=== PATIENT | male | born 1960 ===

== ENCOUNTER 2017-02-18 13:01 | Emergency (ER) | payer BC ==
[2017-02-18 13:08] VITALS: BP 161/93; PULSE 67; RESP 16; TEMP 98.2; O2SAT 97
[2017-02-18] MEDS ORDERED: Naloxone 0.4 mg/ml Inj (Adult) ONE (13:42)
--- NOTE | 2017-02-18 13:48 | ED PDOC ---
HPI: General Adult Time Seen by Provider: 02/18/17 13:21 Chief Complaint (Nursing): Abdominal Pain Chief Complaint (Provider): Rectum pain History Per: Patient History/Exam Limitations: no limitations Onset/Duration Of Symptoms: Hrs Current Symptoms Are (Timing): Still Present Additional Complaint(s): 56 y/o male who presents to the emergency department with a complaint of pain and burning of the rectum region since this morning. Reports taking 1 percocet tab around 8am this morning for the relief of symptoms. Denies having any new foods or drinks, bleeding of the rectum area, burning while urinating, shortness of breath, abdominal, back, testicular, or chest pain. Last bowel movement was at 6am. Stats no BM after 6am. Past Medical History Reviewed: Historical Data, Nursing Documentation, Vital Signs Vital Signs: Last Vital Signs Temp 98.2 F 02/18/17 13:06 Pulse 67 02/18/17 13:06 Resp 16 02/18/17 13:06 BP 161/93 H 02/18/17 13:06 Pulse Ox 97 02/18/17 14:01 - Surgical History Other surgeries: abd surgeries when young - Family History Family History: States: Unknown Family Hx - Social History Current smoker - smoking cessation education provided: No Ex-Smoker (has not smoked in the last 12 months): Yes Alcohol: Occasional Drugs: Denies - Immunization History Hx Tetanus Toxoid Vaccination: No Hx Influenza Vaccination: No Hx Pneumococcal Vaccination: No - Home Medications Home Medications: Ambulatory Orders Medication Instructions Recorded Naproxen [Naprosyn] 500 mg PO Q12H #20 tab 01/05/16 Magnesium Citrate [Citrate of Mag] 150 ml PO DAILY PRN 3 Days 02/18/17 - Allergies Allergies/Adverse Reactions: Allergies Allergy/AdvReac Type Severity Reaction Status Date / Time No Known Allergies Allergy Verified 11/08/14 07:49 Review of Systems ROS Statement: Except As Marked, All Systems Reviewed And Found Negative Cardiovascular: Negative for: Chest Pain Respiratory: Negative for: Shortness of Breath Gastrointestinal: Negative for: Abdominal Pain Genitourinary Male: Positive for: Other (Burning rectum pain). Negative for: Dysuria, Scrotal Pain (Testicular pain or blood from the rectum) Musculoskeletal: Negative for: Back Pain Physical Exam - Reviewed Nursing Documentation Reviewed: Yes Vital Signs Reviewed: Yes - Physical Exam Appears: Positive for: Non-toxic, Uncomfortable Head Exam: Positive for: ATRAUMATIC, NORMOCEPHALIC Skin: Positive for: Normal Color, Warm, Dry Cardiovascular/Chest: Positive for: Regular Rate, Rhythm. Negative for: Murmur Respiratory: Positive for: Normal Breath Sounds. Negative for: Accessory Muscle Use, Respiratory Distress Gastrointestinal/Abdominal: Positive for: Normal Exam, Soft. Negative for: Tenderness, Guarding, Rebound Male Genital Exam: Negative for: testicular tenderness (R), testicular tenderness (L), other (No hemorrhoids. Nontender outside the rectum.He pinpoints to the perineum area and says that is where the pain is located but the area is non tender to palpation. No erythema, induration, discharge and fluctuance of the rectum or perineal region. No discharge in testicular or genital area) Back: Positive for: Normal Inspection. Negative for: L CVA Tenderness, R CVA Tenderness Rectal: Negative for: Hemorrhoids Extremity: Positive for: Normal ROM. Negative for: Tenderness, Pedal Edema Neurologic/Psych: Positive for: Alert, Oriented - ECG O2 Sat by Pulse Oximetry: 97 (RA) Pulse Ox Interpretation: Normal - Radiology X-Ray: Interpreted by Me, Viewed By Me X-Ray Interpretation: Other (constiapation) - Progress ED Course And Treament: 1451: Stable. AAOx3. Pain free. Tolerated PO. Fu with pcp. Medical Decision Making Medical Decision Making: Time: 13:21 Initial impression: Rectum Pain Initial plan: --Urine Dip --Obstructive Series (RAD) --Revaluation Scribe Attestation: Documented by Mikayla Guzmán, acting as a scribe for Damon Gallo MD. Provider Scribe Attestation: All medical record entries made by the Scribe were at my direction and personally dictated by me. I have reviewed the chart and agree that the record accurately reflects my personal performance of the history, physical exam, medical decision making, and the department course for this patient. I have also personally directed, reviewed, and agree with the discharge instructions and disposition. Disposition - Clinical Impression Clinical Impression: Constipation - Disposition Referrals: [facility] [Outside] - 02/20/17 Disposition: Routine/Home Disposition Time: 14:53 Condition: STABLE Additional Instructions: Return if not better in 3 days. Prescriptions: Magnesium Citrate [Citrate of Mag] 150 ml PO DAILY PRN 3 Days PRN Reason: Constipation Instructions: Constipation (ED)
--- NOTE | 2017-02-18 14:58 | RAD ---
PROCEDURE: Radiographs of the chest and abdomen (obstructive series) HISTORY: constipation COMPARISON: No prior. TECHNIQUE: AP radiograph of the chest, with upright and supine radiographs of the abdomen. FINDINGS: CHEST: Lungs: Clear. Cardiovascular: Normal size heart. No pulmonary vascular congestion. Pleura: No pleural fluid. No pneumothorax. Other findings: None. ABDOMEN AND PELVIS: Bowel: Nonobstructive bowel gas pattern. Free air: None. Bones: Unremarkable. Other findings: Surgical clips noted in the right hemipelvis. IMPRESSION: Nonobstructive bowel gas pattern. However, if suspicion for bowel obstruction persists, CT abdomen pelvis should be obtained.
== END 2017-02-18 15:20 | disposition home or self-care (01) ==
LOC: H.ER 13:01
DX: K59.00 Constipation, unspecified (principal); R10.9 Unspecified abdominal pain

== ENCOUNTER 2017-02-20 13:23 | Emergency (ER) | payer BC ==
[2017-02-20 13:34] VITALS: BP 161/94; PULSE 80; RESP 18; TEMP 98.7; O2SAT 98
[2017-02-20] MEDS ORDERED: Iohexol 240 (50 ml) PO ONE (13:49)
--- NOTE | 2017-02-20 13:49 | ED PDOC ---
HPI: General Adult Time Seen by Provider: 02/20/17 13:40 Chief Complaint (Nursing): Abdominal Pain Chief Complaint (Provider): abdominal pain History Per: Patient History/Exam Limitations: no limitations Additional Complaint(s): 56yo male w/ no significant history complaining of right upper abdominal pain and rectal pain ongoing since Sunday after he ate [place]ese food and believes he swallowed a chicken bone. States he passed an approximately 2.5" chicken bone on Sunday night. He was seen in this ED prior to that and had obstructive XR & labs done, both of which were unremarkable. Pain is worsening. He has been using preparation H to his rectum without improvement. No bloody vomit but he had bright red blood from his rectum this morning. Past Medical History Reviewed: Historical Data, Nursing Documentation, Vital Signs Vital Signs: Last Vital Signs Temp 98.7 F 02/20/17 13:30 Pulse 80 02/20/17 13:30 Resp 18 02/20/17 13:30 BP 161/94 H 02/20/17 13:30 Pulse Ox 98 02/20/17 14:10 - Medical History PMH: Deep Vein Thrombosis (?) - Surgical History Other surgeries: surgical procedure for unspecified abdominal abnormality - Family History Family History: States: Unknown Family Hx - Immunization History Hx Tetanus Toxoid Vaccination: No Hx Influenza Vaccination: No Hx Pneumococcal Vaccination: No - Home Medications Home Medications: Ambulatory Orders Medication Instructions Recorded Naproxen [Naprosyn] 500 mg PO Q12H #20 tab 01/05/16 Magnesium Citrate [Citrate of Mag] 150 ml PO DAILY PRN 3 Days 02/18/17 Dicyclomine [Dicyclomine HCl] 10 mg PO QID PRN #12 cap 02/20/17 Ondansetron [Zofran] 4 mg PO Q6H PRN #10 tab 02/20/17 - Allergies Allergies/Adverse Reactions: Allergies Allergy/AdvReac Type Severity Reaction Status Date / Time No Known Allergies Allergy Verified 11/08/14 07:49 Review of Systems ROS Statement: Except As Marked, All Systems Reviewed And Found Negative Gastrointestinal: Positive for: Abdominal Pain, Rectal Pain, Other (rectal bleeding). Negative for: Diarrhea Physical Exam - Reviewed Nursing Documentation Reviewed: Yes Vital Signs Reviewed: Yes - Physical Exam Appears: Positive for: Well, Non-toxic, No Acute Distress Head Exam: Positive for: ATRAUMATIC, NORMAL INSPECTION, NORMOCEPHALIC Skin: Positive for: Warm, Dry Eye Exam: Positive for: EOMI, PERRL Cardiovascular/Chest: Positive for: Regular Rate, Rhythm Respiratory: Positive for: Normal Breath Sounds. Negative for: Rales, Rhonchi, Wheezing Gastrointestinal/Abdominal: Positive for: Soft, Tenderness (mild diffuse tenderness with midline scar healed). Negative for: Guarding, Rebound Extremity: Positive for: Normal ROM - Laboratory Results Result Diagrams: 02/20/17 14:00 02/20/17 16:17 - ECG O2 Sat by Pulse Oximetry: 98 (RA) Pulse Ox Interpretation: Normal Medical Decision Making Medical Decision Makin Prior chart and XR reviewed, which were unremarkable. CT, labs, IV fluids ordered. labs reviewed, mild leukocytosis. CT report reviewed and d/w patient. Needs followup w GI, colonoscopy. No signs perf on CT at this time. Indications for return to ER discussed. Disposition - Clinical Impression Clinical Impression: Abdominal pain - Patient ED Disposition Is Patient to be Admitted: No Counseled Patient/Family Regarding: Studies Performed, Diagnosis, Need For Followup, Rx Given - Disposition Referrals: John Andrews MD [Staff Provider] - Disposition: Routine/Home Disposition Time: 20:00 Condition: STABLE Additional Instructions: See GI doctor for further testing and evaluation. Return to ER for any new or worsening symptoms. Prescriptions: Dicyclomine [Dicyclomine HCl] 10 mg PO QID PRN #12 cap PRN Reason: Gi Distress Ondansetron [Zofran] 4 mg PO Q6H PRN #10 tab PRN Reason: Nausea/Vomiting Instructions: Rectal Bleeding (ED), Abdominal Pain (ED) Forms: [facility] ED School/Work Excuse Additional Comments - Additional Comments Additional Comments: Scribe Attestation: Documented by Eugene Christiansen acting as a scribe for Patrick Solis DO. Provider Scribe Attestation: All medical record entries made by the Scribe were at my direction and personally dictated by me. I have reviewed the chart and agree that the record accurately reflects my personal performance of the history, physical exam, medical decision making, and the department course for this patient. I have also personally directed, reviewed, and agree with the discharge instructions and disposition.
[2017-02-20] MEDS ORDERED: Sodium Chloride 0.9% 1,000 ML IV STA (13:51)
[2017-02-20] MEDS ORDERED: Iohexol 240 (50 ml) ONE (14:04)
[2017-02-20 14:57] LABS: BASO # 0.1 K/uL (0.0-0.2); BASO % 0.7 % (0.0-2.0); EOS # 0.3 K/uL (0.0-0.7); EOS % 1.9 % (0.0-4.0); HEMATOCRIT 42.7 % (35.0-51.0); LYMPH # 2.8 K/uL (1.0-4.3); LYMPH % 16.8 % (20.0-40.0); MEAN CELL VOLUME 94.1 fl (80.0-94.0); MEAN CORPUSCULAR HEMOGLOBIN 32.5 pg (27.0-31.0); MEAN CORPUSCULAR HGB CONC 34.5 g/dL (33.0-37.0); MEAN PLATELET VOLUME 7.7 fl (7.2-11.7); MONO # 1.6 K/uL (0.0-0.8); MONO % 9.8 % (0.0-10.0); NEUT # 11.7 K/uL (1.8-7.0); NEUT % 70.8 % (50.0-75.0); NRBC % 0.1 % (0.0-0.0); RED CELL DISTRIBUTION WIDTH 12.4 % (11.5-14.5); WHITE BLOOD COUNT 16.6 K/uL (4.8-10.8)
[2017-02-20 16:29] LABS: RBC URINE 1 /hpf (0-3); URINE BILIRUBIN NEGATIVE (NEGATIVE); URINE BLOOD NEGATIVE (NEGATIVE); URINE COLOR YELLOW (YELLOW); URINE GLUCOSE (UA) NEG (Normal); URINE KETONE NEGATIVE (NEGATIVE); URINE LEUKOCYTE ESTERASE NEG Leu/uL (Negative); URINE PROTEIN NEGATIVE (NEGATIVE); URINE UROBILINOGEN 0.2-1.0 mg/dL (0.2-1.0); WBC URINE < 1 /hpf (0-5)
[2017-02-20 16:47] LABS: ALB/GLOB RATIO 1.3 (1.0-2.1); ALKALINE PHOSPHATASE 97 U/L (38-126); ALT/SGPT 82 U/L (21-72); AST/SGOT 57 U/L (17-59); BILIRUBIN,TOTAL 0.5 mg/dl (0.2-1.3); BLOOD UREA NITROGEN 16 mg/dl (9-20); CALCIUM 9.2 mg/dL (8.4-10.2); CARBON DIOXIDE 30 mmol/L (22-30); CHLORIDE 102 mmol/L (98-107); GFR AFRICAN-AMERICAN > 60; GLUCOSE,RANDOM 109 mg/dL (75-110); SODIUM 145 mmol/l (132-148); TOTAL PROTEIN 7.3 G/DL (6.3-8.2)
[2017-02-20] MEDS ORDERED: Iohexol 300 100 ML IJ ONE (16:55)
[2017-02-20] MEDS ORDERED: Sodium Chloride 0.9% 50 ML IV ONE (16:56)
--- NOTE | 2017-02-20 17:54 | CT ---
PROCEDURE: CT Abdomen and Pelvis with oral and IV contrast. HISTORY: abdominal pain, possible swallowed chicken bone COMPARISON: Obstructive series performed 02/18/17. TECHNIQUE: Contiguous axial images of the abdomen and pelvis. Oral and IV contrast was administered. Coronal and Sagittal reformats generated and reviewed. This CT exam was performed using 1 or more of the falling dose reduction techniques: Automated exposure control, adjustment of the MAA and/or kV according to patient size, and/or use of iterative reconstruction technique Contrast dose: 95 mL Omnipaque 300 Radiation dose: Total exam DLP = 764.18 mGy-cm. FINDINGS: LOWER THORAX: No visible consolidation, pleural effusion, or pneumothorax. Small hiatal hernia. LIVER: Diffuse hypoattenuation of the liver compatible with hepatic steatosis. Hepatomegaly. GALLBLADDER AND BILE DUCTS: Contracted gallbladder appears otherwise unremarkable. PANCREAS: Unremarkable. SPLEEN: Unremarkable. ADRENALS: Unremarkable. KIDNEYS AND URETERS: The kidneys enhance symmetrically. No hydronephrosis or obstructing renal calculus. 9 mm right renal hypodensity, too small to characterize; statistically likely a cyst. BLADDER: Unremarkable. REPRODUCTIVE: Unremarkable. APPENDIX: The appendix appears within normal limits of caliber. No secondary signs of acute appendicitis. BOWEL: The stomach is nondistended. The bowel loops appear within normal limits of caliber without evidence of intestinal obstruction. PERITONEUM: No significant free fluid. No definite free air. LYMPH NODES: No bulky lymphadenopathy identified. VASCULATURE: No aortic aneurysm. BONES: No acute osseous abnormality is detected. OTHER FINDINGS: Surgical clips noted within the right lower quadrant. IMPRESSION: Small hiatal hernia/distal esophageal wall thickening. Hepatic steatosis. Hepatomegaly. 9 mm too small to characterize right renal hypodensity; statistically likely a cyst.
== END 2017-02-20 20:00 | disposition home or self-care (01) ==
LOC: H.ER 13:23
DX: R10.9 Unspecified abdominal pain (principal)
CPT/HCPCS: 74177; 80053; 81003; 85025; 96360; 99283; J7040; Q9966; Q9967

== ENCOUNTER 2018-05-19 11:48 | Emergency (ER) | payer BC ==
[2018-05-19 11:48] VITALS: BMI 27.4
[2018-05-19 12:04] VITALS: BP 154/120; PULSE 78; TEMP 98; O2SAT 97
[2018-05-19] MEDS ORDERED: Lidocaine 5% Patch TD STA (12:37)
[2018-05-19] MEDS ORDERED: Lidocaine 5% Patch TD ONE (12:44)
--- NOTE | 2018-05-19 12:51 | ED PDOC ---
HPI: Back Time Seen by Provider: 05/19/18 11:55 Chief Complaint (Nursing): Back Pain Chief Complaint (Provider): Lower Back Pain History Per: Patient History/Exam Limitations: no limitations Onset/Duration Of Symptoms: Days Current Symptoms Are (Timing): Still Present Quality Of Discomfort: "Pain" Previous Symptoms: None Associated Symptoms: None Exacerbating Factor(s): Movement, Other (ambulation) Additional Complaint(s): 58 year old male presents to the emergency department complaining of lower back pain. 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 He states that he has been taking naprosyn and advil at home with no relief. Pain is worse with movement and ambulation. Denies weakness, numbness, incontinence, genitourinary symptoms, paresthesias. PMD: Lewis Contreras - Risk Factors AAA Risk Factors: Pos: Older Than 49 Years Of Age Past Medical History Reviewed: Historical Data, Nursing Documentation, Vital Signs Vital Signs: Last Vital Signs Temp 98 F 05/19/18 12:03 Pulse 78 05/19/18 12:03 Resp BP 154/120 H 05/19/18 12:03 Pulse Ox 97 05/19/18 12:03 - Medical History PMH: No Chronic Diseases, Deep Vein Thrombosis (?) Denies: Chronic Kidney Disease - Surgical History Surgical History: No Surg Hx - Family History Family History: States: Unknown Family Hx - Social History Current smoker - smoking cessation education provided: No (former smoker) Ex-Smoker (has not smoked in the last 12 months): No Alcohol: None Drugs: Denies - Immunization History Hx Tetanus Toxoid Vaccination: No Hx Influenza Vaccination: No Hx Pneumococcal Vaccination: No - Home Medications Home Medications: Ambulatory Orders Medication Instructions Recorded Omeprazole 1 tab PO DAILY 03/16/17 Diazepam [Valium] 2 mg PO BID PRN #6 tab 05/19/18 Ibuprofen [Motrin] 600 mg PO TID 7 Days tab 05/19/18 Lidocaine 5% [Lidoderm] 1 ea TD DAILY PRN #5 patch 05/19/18 - Allergies Allergies/Adverse Reactions: Allergies Allergy/AdvReac Type Severity Reaction Status Date / Time No Known Allergies Allergy Verified 05/19/18 12:07 Review of Systems ROS Statement: Except As Marked, All Systems Reviewed And Found Negative Genitourinary Male: Negative for: Incontinence Musculoskeletal: Positive for: Back Pain (lower) Neurological: Negative for: Weakness, Numbness Physical Exam - Reviewed Nursing Documentation Reviewed: Yes Vital Signs Reviewed: Yes - Physical Exam Appears: Positive for: Non-toxic, In Acute Distress (moderate painful distress) Head Exam: Positive for: ATRAUMATIC, NORMAL INSPECTION, NORMOCEPHALIC Skin: Positive for: Normal Color, Warm, Dry. Negative for: Rash Eye Exam: Positive for: Normal appearance, EOMI, PERRL. Negative for: Nystagmus ENT: Positive for: Normal ENT Inspection. Negative for: Nasal Congestion, Tonsillar Exudate, Tonsillar Swelling Neck: Positive for: Normal, Painless ROM, Supple Cardiovascular/Chest: Positive for: Regular Rate, Rhythm, Chest Non Tender. Negative for: Tachycardia Respiratory: Positive for: Normal Breath Sounds. Negative for: Rales, Rhonchi, Wheezing, Respiratory Distress Gastrointestinal/Abdominal: Positive for: Normal Exam, Bowel Sounds, Soft. Negative for: Tenderness, Guarding Back: Positive for: Other (tenderness yo bilateral lumbar area; no spinal tenderness; limited ROM secondary to pain). Negative for: L CVA Tenderness, R CVA Tenderness, Vertebral Tenderness, Muscle Spasm Extremity: Positive for: Normal ROM, Tenderness. Negative for: Capillary Refill , Swelling Neurologic/Psych: Positive for: Alert, Oriented, Gait, Other (neuro intact). Negative for: Motor/Sensory Deficits - ECG O2 Sat by Pulse Oximetry: 97 (RA) Pulse Ox Interpretation: Normal Medical Decision Making Medical Decision Makin Initial Impression 58 year old male presenting with lower back pain Initial Plan: * RAD lumbar spine complete * Lidocaine 1 ea TD * Toradol 30 mg IM * Valium 5 mg PO * Reevaluation 1402 PROCEDURE: Radiographs of the Lumbar Spine. HISTORY: Low back pain COMPARISON: No prior. FINDINGS: BONES: Normal alignment. No listhesis. No fracture. DISC SPACES: Unremarkable. OTHER FINDINGS: None. IMPRESSION: Unremarkable radiographs of the lumbar spine. Documented by Amy Bartlett acting as a scribe for Lexus Rondon MD. All medical record entries made by the Scribe were at my direction and personally dictated by me. I have reviewed the chart and agree that the record accurately reflects my personal performance of the history, physical exam, medical decision making, and the department course for this patient. I have also personally directed, reviewed, and agree with the discharge instructions and disposition. Disposition - Clinical Impression Clinical Impression: Low back pain - Disposition Disposition: Transfer of Care Disposition Time: 15:00 Condition: STABLE Additional Instructions: Return if not better in 3 days. Prescriptions: Diazepam [Valium] 2 mg PO BID PRN #6 tab PRN Reason: Muscle Spasm Ibuprofen [Motrin] 600 mg PO TID 7 Days tab Lidocaine 5% [Lidoderm] 1 ea TD DAILY PRN #5 patch PRN Reason: Pain, Moderate (4-7) Instructions: Low Back Pain in Adults Forms: [employer] (Slovak), [facility] ED School/Work Excuse Patient Signed Over To: Damon Gallo
--- NOTE | 2018-05-19 14:03 | RAD ---
PROCEDURE: Radiographs of the Lumbar Spine. HISTORY: Low back pain COMPARISON: No prior. FINDINGS: BONES: Normal alignment. No listhesis. No fracture. DISC SPACES: Unremarkable. OTHER FINDINGS: None. IMPRESSION: Unremarkable radiographs of the lumbar spine.
[2018-05-19] MEDS ORDERED: Oxycodone/Acetaminophen 5/325 mg Tab PO STA (14:52)
[2018-05-19] MEDS ORDERED: Oxycodone/Acetaminophen 5/325 mg Tab ONE (15:00)
--- NOTE | 2018-05-19 15:16 | ED PDOC ---
- ECG O2 Sat by Pulse Oximetry: 97 (RA) Pulse Ox Interpretation: Normal - Progress ED Course And Treament: 1533: Stable. AAOx3. Pain improved. Tolerated. No numbness, tingles, weakness. No leg pain. Ambulated with no issues. Fu with pcp. Medical Decision Making Medical Decision Making: Time: 1500 -- Patient endorsed to me by Dr. Rondon, pending re-evaluation. Patient presents to the ED complaining of back pain after twisting his back and is here to be evaluated. Scribe Attestation: Documented by Nadine Khan acting as a scribe for Dr. Damon Gallo MD. Provider Scribe Attestation: All medical record entries made by the Scribe were at my direction and personally dictated by me. I have reviewed the chart and agree that the record accurately reflects my personal performance of the history, physical exam, medical decision making, and the department course for this patient. I have also personally directed, reviewed, and agree with the discharge instructions and disposition. Disposition Counseled Patient/Family Regarding: Studies Performed, Diagnosis, Need For Followup, Rx Given - Clinical Impression Clinical Impression: Low back pain - POA Present On Arrival: None - Disposition Disposition: Routine/Home Disposition Time: 15:35 Condition: STABLE Additional Instructions: Return if not better in 3 days. Prescriptions: Diazepam [Valium] 2 mg PO BID PRN #6 tab PRN Reason: Muscle Spasm Ibuprofen [Motrin] 600 mg PO TID 7 Days tab Lidocaine 5% [Lidoderm] 1 ea TD DAILY PRN #5 patch PRN Reason: Pain, Moderate (4-7) Instructions: Low Back Pain in Adults Forms: [facility] (Welsh), [facility] ED School/Work Excuse
== END 2018-05-19 15:46 | disposition home or self-care (01) ==
LOC: H.ER 11:48
DX: M54.5 Low back pain (principal)
CPT/HCPCS: 72114; 82948; 96372; 99283; J1885

== ENCOUNTER 2018-08-10 16:39 | Emergency (ER) | payer BC ==
[2018-08-10 16:40] VITALS: BMI 27.4
[2018-08-10] MEDS ORDERED: Oxycodone/Acetaminophen 5/325 mg Tab PO STA (16:57)
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
[2018-08-10] MEDS ORDERED: Oxycodone/Acetaminophen 5/325 mg Tab ONE (17:08)
[2018-08-10 18:21] VITALS: BP 124/75; PULSE 66; RESP 16; TEMP 98
[2018-08-10 18:47] VITALS: O2SAT 98
--- NOTE | 2018-08-11 08:41 | RAD ---
Date of service: 08/10/2018 HISTORY: coughing COMPARISON: No prior. TECHNIQUE: Chest PA and lateral FINDINGS: LUNGS: No active pulmonary disease. PLEURA: No significant pleural effusion identified. No pneumothorax apparent. CARDIOVASCULAR: Normal. OSSEOUS STRUCTURES: No significant abnormalities. VISUALIZED UPPER ABDOMEN: Normal. OTHER FINDINGS: None. IMPRESSION: No active disease.
== END 2018-08-10 19:06 | disposition home or self-care (01) ==
LOC: H.ER 16:39
DX: M62.838 Other muscle spasm (principal); R05 Cough; Z86.718 Personal history of other venous thrombosis and embolism; V13.4XXA Pedal cycle driver injured in collision with car, pick-up truck or van in traffic accident, initial encounter; Y93.55 Activity, bike riding
CPT/HCPCS: 71046; 96372; 99282; J1885